=== PATIENT | male | born 1965 | race African-American/Black ===

== ENCOUNTER 2024-12-30 21:40 | Emergency (ER) | payer MEDICAID ==
[~2024-12-30] VITALS: Ht 175.3 cm; Wt 73.0 kg
[2024-12-30 21:53] VITALS: O2SAT 98
[2024-12-30] MEDS: QUETIAPINE FUMARATE 50MG TABLET PO ONE (22:45)
[2024-12-31] MEDS: QUETIAPINE FUMARATE 50MG TABLET PO NR (02:03)
[2024-12-31 02:10] VITALS: BP 114/70; PULSE 89; RESP 16; TEMP 36.7; O2SAT 97
== END 2024-12-31 07:33 | disposition home or self-care (01) ==
LOC: ER 21:40
DX: T51.0X1A Toxic effect of ethanol, accidental (unintentional), initial encounter (principal); F44.81 Dissociative identity disorder; I10 Essential (primary) hypertension; F31.9 Bipolar disorder, unspecified; Z88.6 Allergy status to analgesic agent; Z86.59 Personal history of other mental and behavioral disorders; Y92.9 Unspecified place or not applicable
CPT/HCPCS: 99283; Z7610